=== PATIENT | male | born 1950 | race Hispanic/Latino ===

== ENCOUNTER 2018-08-01 08:42 | Inpatient (IN) | payer SELFPAY ==
[2018-08-01 14:03] LABS: #Basophils 0.1 thou/uL (0.0-0.2); #Eosinphils 0.3 thou/uL (0.0-0.7); #Lymphocytes 2.7 thou/uL (1.20-3.40); #Monocytes 0.7 thou/uL (0.11-0.59); %Basophils 1.2 % (0.0-1.0); %Eosinophils 2.9 % (0.0-10.0); %Lymphocytes 27.3 % (21.0-51.0); %Monocytes 7.1 % (0.0-10.0); %Neutrophils 61.5 % (42.0-75.0); Hemoglobin 9.6 g/dL (14.0-18.0); Mean Corpuscular HGB CONC 32.7 g/dL (32.0-36.0); Mean Corpuscular Hemoglobin 29.5 pg (27.0-31.0); Mean Corpuscular Volume 90.2 fL (78.0-98.0); Mean Platelet Volume 7.9 fL (7.4-10.4); Platelet Count 255 thou/uL (130-400); RBC Distribution Width 13.2 % (11.5-14.5); Red Blood Cell (RBC) Count 3.26 mill/uL (4.70-6.10); White Blood Cell (WBC) Count 9.7 thou/uL (4.8-10.8)
[2018-08-01 14:10] LABS: Hemoglobin A1c 5.3 % (4.0-6.0)
[2018-08-01 14:28] LABS: Albumin 4.4 g/dL (3.4-4.8); Anion Gap 18 mmol/L (10-20); BUN (Urea Nitrogen) 99 mg/dL (8.4-25.7); BUN/Creatinine Ratio 10.08; Calc. Creatinine Clearance 0 mL/min (70-130); Calcium 8.3 mg/dL (7.8-10.44); Carbon Dioxide 20 mmol/L (23-31); Chloride 105 mmol/L (98-107); Estimated GFR-MDRD 5; Glucose 118 mg/dL (80-115); Phosphorus 5.8 mg/dL (2.3-4.7); Potassium 4.6 mmol/L (3.5-5.1); Sodium 138 mmol/L (136-145)
[2018-08-01 14:48] LABS: HBCM Index 0.07 S/CO (0-0.79); HBSAg Index 0.18 S/CO (0-0.99); Hep A IgM AB Non-Reactive (NonReactive); Hep A IgM S/CO 0.16 S/CO (0-0.79); Hep B Surf Ag Non-Reactive S/CO (NonReactive); Hep C IgG Ab Non-Reactive (NonReactive); Hep C Index 0.09 S/CO (0-0.79); Hepatitis B Core IGM Abs Non-Reactive (NonReactive)
--- NOTE | 2018-08-01 16:16 | ULT ---
VEIN MAPPING OF UPPER EXTREMITIES FOR DIALYSIS ACCESS: 08/01/18 INDICATION: Ultrasound and doppler studies performed on the cephalic and basilic veins of both upper extremities for mapping purposes to assess for dialysis graft access. RIGHT UPPER EXTREMITY BRACHIAL ARTERY: 5.7 mm RADIAL ARTERY: 1.0 mm ULNAR ARTERY: 3.1 mm CEPHALIC VEIN Axilla: 1.5 mm Proximal humerus: 1.1 mm Mid humerus: 1.7 mm Distal humerus: 2.2 mm Elbow: 1.1 mm Forearm: 1.1 mm BASILIC VEIN Axilla: 5.5 mm Proximal humerus: 2.0 mm Mid humerus: 2.0 mm Distal humerus: 1.3 mm Elbow: 0.8 mm Mid Forearm: 0.5 mm LEFT UPPER EXTREMITY BRACHIAL ARTERY: 4.8 mm RADIAL ARTERY: 1.4 mm ULNAR ARTERY: 3.3 mm CEPHALIC VEIN Axilla: 3.0 mm Proximal humerus: 2.8 mm Mid humerus: 2.5 mm Distal humerus: 4.3 mm Elbow: 2.5 mm Mid Forearm: 1.9 mm BASILIC VEIN Axilla: 3.7 mm Proximal humerus: 2.4 mm Mid humerus: 1.6 mm Distal humerus: 1.0 mm Elbow: 1.0 mm Mid Forearm: 0.7 mm POS: [facility]
[2018-08-01] MEDS ORDERED: Ondansetron ODT 4 MG TAB PO PRN (17:47)
[2018-08-01] MEDS ORDERED: HumaLOG 300 UNITS/3 ML VIAL SC PRN (17:47)
[2018-08-01] MEDS ORDERED: Dextrose 5% in Water 1,000 ML IV PRN (17:47)
[2018-08-01] MEDS ORDERED: Dextrose 50% Abboject 50 ML SYRINGE SLOW IVP PRN (17:47)
[2018-08-01] MEDS ORDERED: Ondansetron HCl/PF 4 MG/2 ML Vial IVP PRN (17:47)
[2018-08-01] MEDS ORDERED: Calcitriol 0.25 MCG CAP PO SCH (18:15)
[2018-08-01] MEDS ORDERED: NIFEdipine XL 30 MG TAB PO SCH (18:15)
[2018-08-01 18:28] LABS: Iron 72 ug/dL (65-175); Iron Binding Capacity, Total 305 mcg/dL (261-462)
[2018-08-01] MEDS ORDERED: Prevnar 13-Val Conj/PF 0.5 ML SYRINGE IM ONE (21:00)
[2018-08-01 21:37] LABS: Creatinine, Urine 51.21 mg/dL (63-166)
[2018-08-02] MEDS ORDERED: Tuberculin PPD 0.1 ML VIAL I-DERMAL SCH (05:45)
--- NOTE | 2018-08-02 07:43 | PDOC.GSCN ---
Surgery Consult: HPI - Consult details Date: 08/02/18 Time: 07:41 Reason for consult: other History of present illness: 08/02/18 07:55 Patient is a [place] national who was here visiting his grandchildren when he started feeling bad. He states that he felt weak and ill so he went to a clinic where lab work showed that he was in renal failure. He states that he has diabetes and hypertension but has never been told that his kidneys were bad. He denies any shortness of breath or swelling in his legs. He has been feeling weak and losing weight and has developed a tremor. He was sent to a insecticide supervisor who admitted him to the hospital for institution of dialysis since his GFR was 5. He is not significantly acidotic or hyperkalemic. 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 He is right-handed. 08/02/18 07:57 Surgery Consult: ROS - Review of Systems Constitutional: reports: fatigue, lethargy, malaise, weakness, weight loss. denies: as per HPI, anorexia, chills, daytime sleepiness, excessive sweating, fever(s), frequent falls, headache(s), increased appetite, night sweats, stops breathing during sleep, snoring, weight gain, other HEENT: denies: Head Aches, Visual Changes, Eye Pain, Ear Pain, Dysphasia, Sinus Congestion, Post Nasal Drip, Sore Throat, Other Breast: denies: as per HPI, change in shape, skin changes, swelling, mass, pain , nipple discharge, other Cardiovascular: reports: regular rate and rhythm. denies: irregular rate, no murmur, other Respiratory: denies: as per HPI, chest congestion, cough, dyspnea, hemoptysis, dyspnea on exertion, wheezing, snoring, stridor, pain on inspiration, excessive phlegm production, change in phlegm color, pain with cough, other Gastrointestinal: denies: as per HPI, abdominal pain, belching, bloating, change in bowel habits, coffee ground emesis, constipation, cramping, change in stool character, diarrhea, dyspepsia, dysphagia, excessive flatus, early satiety , fecal incontinence, heartburn, hematemesis, hematochezia, loose stool, melena , nausea, odynophagia, tenesmus, vomiting, other Musculoskeletal: reports: abnormal gait, muscle weakness. denies: as per HPI, arthralgias, atrophy, back pain, defomity, joint swelling, loss of height, limited range of motion, muscle cramps, myalgias, neck pain, numbness, radiating pain into limb, stiffness, tingling, other Integumentary: denies: as per HPI, acne, alopecia, bleeding lesions, change in hair, changing lesions, change in nails, change in pigmentation, dry skin, erythema, furuncle, lesions, non-healing lesions, new lesions, photosensitivity , pruritus, rash, sores, skin pain, striae, skin ulcer, swelling, unusual bruising, wounds, jaundice, other Neurologial: reports: abnormal gait, tremor(s), weakness. denies: as per HPI, abnormal hearing, abnormal movements, abnormal speech, behavioral changes, confusion, convulsions, dizziness, disequilibrium, frequent falls, focal weakness, headache(s), lack of coordination, loss of vision, memory loss, numbness, paresthesias, restless legs, radicular pain, sensory deficit, syncope , tingling, vertigo, other visual disturbances, other Psychiatric: denies: as per HPI, auditory halluncinations, anhedonia, anxiety, abnormal sleep pattern, behavioral changes, change in appetite, change in libido , confusion, difficulty concentrating, depression, hallucinations, homicidal ideation, hopelessness, irritability, mood swings, paranoia, panic attacks, suicidal ideation, visual hallucinations, tactile, other Surgery Consult: H Source: patient, family Past Medical History: Diabetes, hypertension, hyperlipidemia, history of stroke with residual right- sided weakness Past Surgical History: None; had stitches in hand after minor injury - Past Family History Pertinent family history: None - Past Social History Drug Use History: IV drugs, pt denies any use Living Situation: Surgery Consult: Exam - Vital signs Vital signs: Vital Signs - Most Recent Temp Pulse Resp BP Pulse Ox 98.3 F 105 H 20 144/90 H 93 L 08/02/18 04:00 08/02/18 04:00 08/02/18 04:00 08/02/18 04:00 08/02/18 04:00 - Physical Exam General: no distress Eye: normal ocular movement, PERRL ENT: no congestion Neck: no lymphadectomy, no masses, trachea midline Respiratory: clear to auscultation, normal expansion, normal respiratory effort Abdomen: non tender, soft, bowel sounds. negative: tender, organomegaly, surgical scars, wound, masses, guarding, rigid, rebound, distended, other Hernia: none Integumentary: no abnormal pigmentation, no growths, no rash Neurologic: normal coordination, normal sensation, other (Patient reports minor weakness in right leg greater than arm which was not evident on exam) Musculoskeletal: other (Slight limp) Psychiatric: memory intact, oriented to time, oriented to person, oriented to place, speech is normal, other Additional exam: Palpable cephalic and antecubital veins bilaterally. Ulnar dominant filling bilaterally on Chintan's testing. Peripheral IV and right hand dorsum. Patient is right-handed Surgery Consult: Meds - Medications MAR Reviewed: Yes Medications: Current Medications Acetaminophen (Tylenol) 650 mg PO Q4H PRN PRN Reason: Headache/Fever/Mild Pain (1-3) Aspirin (Ecotrin) 81 mg PO DAILY [facility] Calcitriol (Rocaltrol) 0.25 mcg PO DAILY [facility] Calcium Acetate (Phoslo) 1,334 mg PO TID-WM [facility] Dextrose/Water (Dextrose 50%) 25 gm SLOW IVP PRN PRN PRN Reason: Hypoglycemia Glucagon (Glucagon) 1 mg IM PRN PRN PRN Reason: Hypoglycemia Dextrose/Water (D5w) 1,000 mls @ 0 mls/hr IV .Q0M PRN PRN Reason: Hypoglycemia Insulin Human Lispro (Humalog) 0 units SC .MILD SLIDING SCALE PRN PRN Reason: Mild Correctional Scale Nifedipine (Procardia Xl) 30 mg PO DAILY [facility] Read Ppd Test Site 0 each PO ONE [facility] Stop: 08/04/18 09:01 Ondansetron HCl (Zofran Odt) 4 mg PO Q6H PRN PRN Reason: Nausea/Vomiting Ondansetron HCl (Zofran) 4 mg IVP Q6H PRN PRN Reason: Nausea/Vomiting - Allergies Allergies/Adverse Reactions: Allergies Allergy/AdvReac Type Severity Reaction Status Date / Time No Known Allergies Allergy Verified 08/01/18 13:10 Surgery Consult: Results - Labs Result Diagrams: 08/01/18 13:54 08/01/18 13:54 Lab results: Laboratory Results WBC 9.7 thou/uL (4.8-10.8) 08/01/18 13:54 RBC 3.26 mill/uL (4.70-6.10) L 08/01/18 13:54 Hgb 9.6 g/dL (14.0-18.0) L 08/01/18 13:54 Hct 29.4 % (42.0-52.0) L 08/01/18 13:54 MCV 90.2 fL (78.0-98.0) 08/01/18 13:54 MCH 29.5 pg (27.0-31.0) 08/01/18 13:54 MCHC 32.7 g/dL (32.0-36.0) 08/01/18 13:54 RDW 13.2 % (11.5-14.5) 08/01/18 13:54 Plt Count 255 thou/uL (130-400) 08/01/18 13:54 MPV 7.9 fL (7.4-10.4) 08/01/18 13:54 Neutrophils % 61.5 % (42.0-75.0) 08/01/18 13:54 Lymphocytes % 27.3 % (21.0-51.0) 08/01/18 13:54 Monocytes % 7.1 % (0.0-10.0) 08/01/18 13:54 Eosinophils % 2.9 % (0.0-10.0) 08/01/18 13:54 Basophils % 1.2 % (0.0-1.0) H 08/01/18 13:54 Neutrophils # 6.0 thou/uL (1.40-6.50) 08/01/18 13:54 Lymphocytes # 2.7 thou/uL (1.20-3.40) 08/01/18 13:54 Monocytes # 0.7 thou/uL (0.11-0.59) H 08/01/18 13:54 Eosinophils # 0.3 thou/uL (0.0-0.7) 08/01/18 13:54 Basophils # 0.1 thou/uL (0.0-0.2) 08/01/18 13:54 Sodium 138 mmol/L (136-145) 08/01/18 13:54 Potassium 4.6 mmol/L (3.5-5.1) 08/01/18 13:54 Chloride 105 mmol/L (98-107) 08/01/18 13:54 Carbon Dioxide 20 mmol/L (23-31) L 08/01/18 13:54 Anion Gap 18 mmol/L (10-20) 08/01/18 13:54 BUN 99 mg/dL (8.4-25.7) H 08/01/18 13:54 Creatinine 9.82 mg/dL (0.6-1.3) H 08/01/18 13:54 Estimated GFR (MDRD) 5 08/01/18 13:54 BUN/Creatinine Ratio 10.08 08/01/18 13:54 Glucose 118 mg/dL (80-115) H 08/01/18 13:54 POC Glucose 110 mg/dL (70-110) 08/02/18 04:14 Hemoglobin A1c 5.3 % (4.0-6.0) 08/01/18 13:54 Calcium 8.3 mg/dL (7.8-10.44) 08/01/18 13:54 Phosphorus 5.8 mg/dL (2.3-4.7) H 08/01/18 13:54 Iron 72 ug/dL (65-175) 08/01/18 13:54 TIBC 305 mcg/dL (261-462) 08/01/18 13:54 % Saturation 24 % (20-50) 08/01/18 13:54 Ferritin 277.44 ng/mL (22-322) 08/01/18 13:54 Albumin 4.4 g/dL (3.4-4.8) 08/01/18 13:54 PTH Intact 466.9 pg/mL (19.8-88.0) H 08/01/18 13:54 U Random Total Protein 228 mg/dL (1-14) H 08/01/18 21:10 Urine Creatinine 51.21 mg/dL (63-166) L 08/01/18 21:10 Hepatitis A IgM Ab Non-Reactive (NonReactive) 08/01/18 13:54 Hep Bs Antigen Non-Reactive S/CO (NonReactive) 08/01/18 13:54 Hep B Core IgM Ab Non-Reactive (NonReactive) 08/01/18 13:54 Hepatitis C Antibody Non-Reactive (NonReactive) 08/01/18 13:54 Surgery Consult: A/P - Problem (1) Renal failure Current Visit: Yes Status: Acute Qualifiers: Chronic kidney disease stage: stage 5, not on chronic dialysis - Plan Plan: Patient was admitted for institution of dialysis. A tunneled hemodialysis catheter will be placed today for immediate dialysis access. An AV fistula will be necessary ultimately. The patient is only visiting from [place] so this could be done in [place] if he prefers, or next week if he is still here. He does plan to return home to [place] ultimately, as he was just here for a visit. The procedure of tunneled hemodialysis catheter placement was discussed with the patient and his family using a food crops farm hand. Inherent risks of the procedure were discussed. These include but are not limited to bleeding, infection, risks of anesthesia, DVT, air embolism, and need further procedures. He understands and accepts these risks and wishes to proceed. He is on the schedule for this morning. Antibiotics will be ordered second language tutor to the OR.
[2018-08-02] MEDS: Calcitriol 0.25 MCG CAP PO SCH ×2 (07:55→11:30)
[2018-08-02] MEDS: Aspirin 81 mg Enteric Coated Tablet PO SCH (07:55)
[2018-08-02] MEDS: Calcium Acetate 667 MG CAP PO SCH ×3 (07:55→16:12)
[2018-08-02] MEDS ORDERED: Metoprolol Tartrate 100 MG TAB PO SCH (08:00)
[2018-08-02] MEDS ORDERED: Heparin 10,000 UNITS/ 10 ML VIAL ONE (08:21)
[2018-08-02] MEDS: NIFEdipine XL 30 MG TAB PO SCH ×2 (08:28→11:30)
[2018-08-02] MEDS ORDERED: Lidocaine 2% w/Epinephrine 1:200K 20 ML VIAL ONE (08:56)
[2018-08-02] MEDS ORDERED: Bupivacaine/Epinephrine 0.25% 30 ML VIAL ONE (08:56)
[2018-08-02] MEDS ORDERED: Heparin 5,000 UNITS/ML VIAL ONE (08:56)
[2018-08-02] MEDS ORDERED: Sodium Chloride 0.9% 30 ML ONE (08:56)
[2018-08-02] MEDS ORDERED: Fentanyl 100 MCG/2 ML VIAL ONE (08:58)
[2018-08-02] MEDS ORDERED: Midazolam HCl 2 mg/2 ml Vial ONE (08:58)
[2018-08-02] MEDS ORDERED: Heparin 10,000 UNITS/1 ML VIAL ONE (09:20)
[2018-08-02] MEDS ORDERED: Lidocaine 2% PF Inj 2 ML VIAL ONE (09:22)
--- NOTE | 2018-08-02 10:24 | HP ---
CHIEF COMPLAINT: Renal failure. HISTORY OF PRESENT ILLNESS: History is that of 68-year-old gentleman from [place] with family members here, who was referred to me with concern for renal failure. The patient presented to my office wit h a creatinine of above 9. As a result, decision was taken to admit this patient for further workup. The patient seems to be on some medications for diabetes including metformin, which was immediately discontinued having noticed this renal failure. The patient is now being admitted to be initiated o n hemodialysis, though unfortunately the access surgeons have now been noted not to be available for in the next 24 hours and the patient has eaten making it impossible for anything to be done today. PAST MEDICAL HISTORY: 1. Query diabetes. 2. Chronic kidney disease. 3. Hypertension. 4. Dyslipidemia. MEDICATIONS: Reviewed and as documented on nooked. ALLERGIES: No known drug allergy. FAMILY HISTORY: No family history of kidney disease. SOCIAL HISTORY: The patient . Denies alcohol, tobacco, or illicit drug use. REVIEW OF SYSTEMS: As documented in the body of the history. All the other systems were reviewed an d found not to be related to presenting illness. LABORATORY INVESTIGATION: Revealed a hemoglobin of 9.6. Chemistry showed PTH of 466, hemoglobin A1c of 5.3, INR of 7, ferritin 277, creatinine 9.82 with BUN of 99, phosphorus 5.8. IMPRESSION: 1. Chronic kidney disease, stage V/end-stage renal disease. 2. Hyperphosphatemia. 3. Secondary hyperparathyroidism. 4. Hypertension. 5. Questionable diabetes mellitus, most unlikely. PLAN: 1. The patient to get some vein mapping done in preparation for dialysis access. 2. The patient may benefit from erythropoiesis-stimulating agent due to anemia of chronic kidney dis ease. 3. Given the fact that the access surgeons are not available, the patient likely to be discharged wi thin the next 24 hours with a plan to come back when the access surgeons will be available to secure dialysis access. 4. Start this patient on nifedipine and monitor the hemodynamics. 5. Further management will be dependent on the clinical course. 6. Code status is FULL.
[2018-08-02] MEDS: Acetaminophen 325 MG TAB PO PRN (11:33)
--- NOTE | 2018-08-02 11:33 | RAD ---
PORTABLE CHEST: Date: 08/02/18 HISTORY: Catheter placement. FINDINGS: Heart size within normal limits. HemoSplit catheter has been placed, the catheter tip overlies the cortes perior vena cava. No signs of pneumothorax. Old right rib fractures seen. IMPRESSION: Placement of a HemoSplit catheter. No signs of pneumothorax. POS: [facility]
[2018-08-02 13:30] VITALS: BMI 26.4
--- NOTE | 2018-08-02 22:39 | PRG ---
DATE OF SERVICE: 08/02/2018 SUBJECTIVE: The patient is seen and examined today status post dialysis catheter placement, noted wi th the following vital signs. PHYSICAL EXAMINATION: VITAL SIGNS: Afebrile, temperature 97.5, pulse 93, respiratory rate 16, O2 sat 96%, blood pressure 1 37/84. GENERAL: Patient did very well today with the first session of dialysis, status post hemodialysis pl acement. HEENT: Unremarkable. CARDIOVASCULAR: First and heart sounds were heard. RESPIRATORY: Clear to auscultation. DIGESTIVE SYSTEM: Revealed a benign abdomen with positive bowel sounds. EXTREMITIES: No peripheral edema. SKIN: No new gross rash. LYMPHATICS: No peripheral lymphadenopathy. IMPRESSION: 1. End-stage renal disease, just initiated on dialysis today. 2. Secondary hyperparathyroidism. 3. Hyperphosphatemia. PLAN: 1. Patient to continue with hemodialysis. We will begin to coordinate with outpatient dialysis faci lity. In any case, the patient is therefore, we will have chronic kidney disease possibi lity of patient going for peritoneal dialysis as opposed to hemodialysis. 2. Further management to be dependent on the clinical course.
[2018-08-03] MEDS: Calcitriol 0.25 MCG CAP PO SCH (08:16)
[2018-08-03] MEDS: Aspirin 81 mg Enteric Coated Tablet PO SCH (08:16)
[2018-08-03] MEDS: NIFEdipine XL 30 MG TAB PO SCH (08:16)
[2018-08-03] MEDS: Calcium Acetate 667 MG CAP PO SCH ×3 (08:16→16:30)
--- NOTE | 2018-08-03 17:27 | PDOC.OP ---
Operative Note - Operative Note Operative Note: PROCEDURE: Placement of right internal jugular tunneled hemodialysis catheter with ultrasound and fluoroscopic guidance. SURGEON: Ricky Matthew M.D. DATE OF PROCEDURE: 08/02/2018 PREOPERATIVE DIAGNOSIS: Renal failure. POSTOPERATIVE DIAGNOSIS: Renal failure. HISTORY: Patient with newly diagnosed renal failure which is presumably chronic due to diabetes and hypertension. A tunneled hemodialysis catheter for ongoing dialysis has been requested by the patients health unit supervisor. PROCEDURE: After informed consent was obtained and appropriate preoperative antibiotics were administered, the patient was taken to the Operating Room, placed in the supine position and monitored anesthesia care was administered. The neck and chest were prepped and draped in a standard sterile fashion and the patient placed in Trendelenburg position. A sterile ultrasound probe was used to identify the patent compressible right IJ vein which was accessed under direct ultrasound guidance. A wire was threaded through the needle and confirmed by ultrasound to be within the patent compressible vessel with the tip in the vena cava by fluoroscopy. Local anesthesia was infused to the skin and subcutaneous tissues of the right neck and chest. An infraclavicular incision was made and a catheter tunneled from the infraclavicular to the right IJ access site. The right IJ was sequentially dilated over the wire following which a dilator and sheath were placed over the wire and the dilator and wire removed leaving the sheath in place. The catheter was tunneled through the sheath which was then split and removed leaving the catheter in place. This was confirmed by fluoroscopy to be in good position in the superior vena cava with no kinking of the course of the catheter. Both ports easily aspirated dark venous nonpulsatile blood and easily flushed without resistance. Heparin was instilled to the quantity specified on the hub, and the hub was secured to the skin with 3-0 nylon sutures. The skin incision at the neck was closed in two layers with 4-0 Monocryl suture and Dermabond dressings were placed. The skin at the exit site was snugged up around the catheter with 4-0 Monocryl suture and Dermabond was placed there as well. Once the Dermabond was dry, a Biopatch and Tegaderm dressing was placed at the exit site. The patient was taken to Recovery in good condition. Estimated blood loss was minimal. There were no complications. There were no specimens.
--- NOTE | 2018-08-03 21:54 | PRG ---
DATE OF SERVICE: 08/03/2018 SUBJECTIVE: The patient is seen and examined with no new complaint. PHYSICAL EXAMINATION: VITAL SIGNS: Noted with the following vital signs. Afebrile with temperature 98.2, pulse 88, respir atory rate of 18, O2 sat of 98%. HEENT: Unremarkable. CARDIOVASCULAR SYSTEM: First and heart sounds were heard. RESPIRATORY SYSTEM: Clear to auscultation. DIGESTIVE SYSTEM: Revealed a benign abdomen with positive bowel sounds. EXTREMITIES: No peripheral edema. SKIN: No new gross rash. LYMPHATICS: No peripheral lymphadenopathy. IMPRESSION: 1. End-stage renal disease, recently initiated on hemodialysis. 2. Anemia, likely anemia of chronic kidney disease. 3. Secondary hyperparathyroidism with hyperphosphatemia. 4. Hypertension. PLAN: 1. The patient already has a tunneled dialysis catheter. We will coordinate with the surgical team as he relates to a long-term dialysis access including but not limited to AV fistula and peritoneal d ialysis catheter. However, workup needs to be carried workup and evaluation need to be c arried out prior to arriving at his long-term access decision. Therefore, the patient likely to be d ischarged tomorrow after dialysis and to follow up with me as an outpatient. 2. Further management to be dependent on the clinical course.
[2018-08-04 05:15] LABS: #Basophils 0.1 thou/uL (0.0-0.2); #Eosinphils 0.3 thou/uL (0.0-0.7); #Lymphocytes 3.3 thou/uL (1.20-3.40); #Neutrophils 6.3 thou/uL (1.40-6.50); %Basophils 1.3 % (0.0-1.0); %Lymphocytes 29.8 % (21.0-51.0); %Neutrophils 56.9 % (42.0-75.0); Hemoglobin 9.8 g/dL (14.0-18.0); Mean Corpuscular HGB CONC 32.3 g/dL (32.0-36.0); Mean Corpuscular Hemoglobin 29.1 pg (27.0-31.0); Mean Platelet Volume 7.6 fL (7.4-10.4); Platelet Count 242 thou/uL (130-400); RBC Distribution Width 12.9 % (11.5-14.5); Red Blood Cell (RBC) Count 3.37 mill/uL (4.70-6.10); White Blood Cell (WBC) Count 11.1 thou/uL (4.8-10.8)
[2018-08-04 05:33] LABS: Anion Gap 18 mmol/L (10-20); BUN (Urea Nitrogen) 77 mg/dL (8.4-25.7); Calc. Creatinine Clearance 10 mL/min (70-130); Carbon Dioxide 23 mmol/L (23-31); Chloride 102 mmol/L (98-107); Estimated GFR-MDRD 6; Glucose 116 mg/dL (80-115); Potassium 4.5 mmol/L (3.5-5.1); Sodium 138 mmol/L (136-145)
[2018-08-04] MEDS: Calcium Acetate 667 MG CAP PO SCH ×3 (08:21→17:53)
[2018-08-04] MEDS: Aspirin 81 mg Enteric Coated Tablet PO SCH (08:22)
[2018-08-04] MEDS: Calcitriol 0.25 MCG CAP PO SCH (08:22)
[2018-08-04] MEDS: NIFEdipine XL 30 MG TAB PO SCH (08:22)
[2018-08-04] MEDS: Acetaminophen 325 MG TAB PO PRN (08:28)
[2018-08-04] MEDS ORDERED: READ PPD TEST SITE PO SCH (09:00)
[2018-08-04] MEDS ORDERED: Heparin 10,000 UNITS/ 10 ML VIAL ONE (11:00)
[2018-08-04 17:47] VITALS: BP 116/77; TEMP 98.1
== END 2018-08-04 18:11 | disposition home or self-care (01) | DRG 673 ==
LOC: T4-A 11:35
PROVIDERS: ADMIT Internal Medicine Nephrology; ATTEND Internal Medicine Nephrology
PROC: 5A1D70Z Performance of Urinary Filtration, Intermittent, Less than 6 Hours Per Day (ICD-10-PCS; 2018-08-02)
PROC: 0JH63XZ Insertion of Tunneled Vascular Access Device into Chest Subcutaneous Tissue and Fascia, Percutaneous Approach (ICD-10-PCS; principal; 2018-08-03)
PROC: 02HV33Z Insertion of Infusion Device into Superior Vena Cava, Percutaneous Approach (ICD-10-PCS; 2018-08-03)
PROC: B548ZZA Ultrasonography of Superior Vena Cava, Guidance (ICD-10-PCS; 2018-08-03)
PROC: B5181ZA Fluoroscopy of Superior Vena Cava using Low Osmolar Contrast, Guidance (ICD-10-PCS; 2018-08-03)
DX: I12.0 Hypertensive chronic kidney disease with stage 5 chronic kidney disease or end stage renal disease (principal); N18.6 End stage renal disease; N25.81 Secondary hyperparathyroidism of renal origin; I69.351 Hemiplegia and hemiparesis following cerebral infarction affecting right dominant side; E78.5 Hyperlipidemia, unspecified; E83.39 Other disorders of phosphorus metabolism; D63.1 Anemia in chronic kidney disease; R26.9 Unspecified abnormalities of gait and mobility; E11.22 Type 2 diabetes mellitus with diabetic chronic kidney disease; E66.9 Obesity, unspecified; Z68.26 Body mass index [BMI] 26.0-26.9, adult; F41.9 Anxiety disorder, unspecified
CPT/HCPCS: 36415; 36416; 71045; 80048; 80069; 80074; 82570; 82728; 83036; 83540; 83550; 83970; 84156; 85025; 86580; 90471; 90662; 90670; 90935; 93005; 93010; 93970; C1752; C1769; G0008; G0009; G0257; G0365; J1642; J1644; J2250; J3010

== ENCOUNTER 2018-08-16 08:02 | Observation (INO) | payer SELFPAY ==
[2018-08-16] MEDS ORDERED: Acetaminophen 325 MG TAB PO PRN (08:43)
[2018-08-16] MEDS ORDERED: Ondansetron ODT 4 MG TAB PO PRN (08:43)
[2018-08-16] MEDS ORDERED: Dextrose 5% in Water 1,000 ML IV PRN (08:43)
[2018-08-16] MEDS ORDERED: Dextrose 50% Abboject 50 ML SYRINGE SLOW IVP PRN (08:43)
[2018-08-16] MEDS ORDERED: Calcium Carbonate 500 MG ChewTAB PO PRN (08:43)
[2018-08-16] MEDS ORDERED: Insulin Regular 300 UNITS/3 ML VIAL SC PRN (08:43)
[2018-08-16 12:05] VITALS: BMI 37.5
[2018-08-16] MEDS ORDERED: Famotidine 20 MG TAB PO PRN (12:28)
[2018-08-16] MEDS ORDERED: Epoetin (ESRD) 20,000 UNITS/ML IVP SCH (12:30)
[2018-08-16 15:37] VITALS: BP 139/87; TEMP 97.8
[2018-08-16] MEDS ORDERED: Heparin 10,000 UNITS/ 10 ML VIAL ONE (15:59)
[2018-08-16] MEDS ORDERED: Calcium Acetate 667 MG CAP PO SCH (17:00)
[2018-08-16] MEDS ORDERED: Pravastatin Sodium 20 MG TAB PO SCH (21:00)
--- NOTE | 2018-08-17 06:43 | DIS ---
For the details of the history and physical, please refer to dictations on this patient. SUMMARY: This 68-year-old gentleman with end-stage renal disease, hemodialysis dependent who present ed here with his uremic symptoms and hyperkalemia, ____ dialysis and he is now being discharged to [facility] with medications.
[2018-08-17] MEDS ORDERED: Calcitriol 0.25 MCG CAP PO SCH (09:00)
[2018-08-17] MEDS ORDERED: NIFEdipine XL 30 MG TAB PO SCH (09:00)
[2018-08-17] MEDS ORDERED: Allopurinol 100 MG TAB PO SCH (09:00)
[2018-08-17] MEDS ORDERED: Aspirin 81 mg Enteric Coated Tablet PO SCH (09:00)
--- NOTE | 2018-08-17 10:18 | HP ---
CHIEF COMPLAINT: Weakness. HISTORY OF PRESENT ILLNESS: The patient is a 68-year-old end-stage renal disease . ___ __ presented to my office with weakness and poor appetite, raising the possibility of uremia. The annie salazar did undergo laboratory evaluation that showed elevated potassium and need for , for which the patient presented to the hospital to undergo hemodialysis. PAST MEDICAL HISTORY: 1. End-stage renal disease, hemodialysis dependent. 2. Type 2 diabetes mellitus. 3. Hypertension. 4. Anemia of chronic kidney disease. MEDICATIONS: Reviewed. ALLERTIES: No known drug allergies. FAMILY HISTORY: end-stage renal disease. SOCIAL HISTORY: No history of tobacco, alcohol or illicit drug abuse. From [place]. REVIEW OF SYSTEMS: As per the history of present illness. . LABORATORY INVESTIGATIONS: in the history of present illness. PHYSICAL EXAMINATION: GENERAL: The patient was found not to be in any obvious distress. VITAL SIGNS: Temperature 97.1, pulse 101, respiratory rate , blood pressure . RESPIRATORY SYSTEM: Clear to auscultation. DIGESTIVE SYSTEM: Positive bowel sounds. EXTREMITIES: No peripheral edema. SKIN: No new gross rash. IMPRESSION: 1. End-stage renal disease, on hemodialysis. 2. . 3. Hyperkalemia. 4. Type 2 diabetes mellitus. 5. Hypertension. PLAN: 1. The patient to undergo hemodialysis with ultrafiltration as tolerated by hemodynamics. 2. Resume all home medications. 3. Renally dose all medications. The patient does well with dialysis will likely be discharged stat us post dialysis.
== END 2018-08-16 15:36 | disposition home or self-care (01) ==
LOC: 2SW 10:36
PROVIDERS: ADMIT Internal Medicine Nephrology; ATTEND Internal Medicine Nephrology
DX: I12.0 Hypertensive chronic kidney disease with stage 5 chronic kidney disease or end stage renal disease (principal); E11.22 Type 2 diabetes mellitus with diabetic chronic kidney disease; N18.6 End stage renal disease; D63.1 Anemia in chronic kidney disease; Z99.2 Dependence on renal dialysis; Z79.82 Long term (current) use of aspirin; Z79.899 Other long term (current) drug therapy
CPT/HCPCS: 36416; 90935; G0257; J1644; Q4081

== ENCOUNTER 2018-09-11 08:14 | Observation (INO) | payer SELFPAY ==
[2018-09-11 10:29] VITALS: BMI 29.2
[2018-09-11 11:03] LABS: #Basophils 0.1 thou/uL (0.0-0.2); #Eosinphils 0.4 thou/uL (0.0-0.7); #Lymphocytes 1.9 thou/uL (1.20-3.40); #Monocytes 0.8 thou/uL (0.11-0.59); #Neutrophils 7.3 thou/uL (1.40-6.50); %Basophils 1.1 % (0.0-1.0); %Eosinophils 3.4 % (0.0-10.0); %Lymphocytes 18.4 % (21.0-51.0); %Monocytes 7.6 % (0.0-10.0); %Neutrophils 69.5 % (42.0-75.0); Hemoglobin 9.1 g/dL (14.0-18.0); Mean Corpuscular HGB CONC 33.2 g/dL (32.0-36.0); Mean Corpuscular Hemoglobin 29.5 pg (27.0-31.0); Mean Corpuscular Volume 88.8 fL (78.0-98.0); Mean Platelet Volume 6.7 fL (7.4-10.4); Platelet Count 254 thou/uL (130-400); RBC Distribution Width 12.5 % (11.5-14.5); Red Blood Cell (RBC) Count 3.09 mill/uL (4.70-6.10); White Blood Cell (WBC) Count 10.4 thou/uL (4.8-10.8)
[2018-09-11 11:21] LABS: ALT (SGPT) Less than 7 U/L (8-55); AST (SGOT) 6 U/L (5-34); Albumin 3.8 g/dL (3.4-4.8); Alkaline Phosphatase 79 U/L (40-150); Bilirubin, Direct 0.2 mg/dL (0.1-0.3); Bilirubin, Total 0.3 mg/dL (0.2-1.2); Protein, Total 7.2 g/dL (5.8-8.1)
[2018-09-11 11:44] LABS: HBSAB Concentration 0.85 mIU/mL; HBSAg Index 0.35 S/CO (0-0.99); Hep B Surf AB Non-Reactive (NonReactive); Hep B Surf Ag Non-Reactive S/CO (NonReactive)
[2018-09-11] MEDS ORDERED: Famotidine 20 MG TAB PO PRN (11:44)
[2018-09-11] MEDS: Calcium Acetate 667 MG CAP PO SCH ×2 (12:09→17:38)
[2018-09-11] MEDS ORDERED: NIFEdipine XL 30 MG TAB PO SCH (17:15)
[2018-09-11 17:27] VITALS: BP 199/113; TEMP 98.8
[2018-09-11] MEDS ORDERED: Atorvastatin Calcium 10 MG TAB PO SCH (21:00)
--- NOTE | 2018-09-11 23:17 | HP ---
CHIEF COMPLAINT: Shortness of breath and renal failure. HISTORY OF PRESENT ILLNESS: He is a 68-year-old gentleman with end-stage renal disease who unfortuna toy cannot get dialysis in any outpatient dialysis facility, presented to the office complaining of not feeling well, short of breath and clinical evaluation with laboratory investigation showed eviden ce of advanced renal failure. Decision was taken to admit this patient for renal replacement therapy . PAST MEDICAL HISTORY: Significant for end-stage renal disease, hypertension, diabetes mellitus. MEDICATIONS: Reviewed and as documented on [facility]. ALLERGIES: No known drug allergy. FAMILY HISTORY: Not significantly related to presenting illness. SOCIAL HISTORY: No alcohol, no tobacco, no illicit drug use. REVIEW OF SYSTEMS: As documented in the body of history. All the other systems were reviewed and fo und not to be significantly related to presenting illness. PHYSICAL EXAMINATION: GENERAL: The patient was found not to be in any physical distress. VITAL SIGNS: Blood pressure 182/88, afebrile, temperature 97.6, pulse 94, respiratory rate of 18, O2 saturation 98%. HEENT: Unremarkable. Moist oral mucosa. No conjunctival injection or icterus. NECK: Supple. CARDIOVASCULAR SYSTEM: First and second heart sounds were heard. RESPIRATORY SYSTEM: Clear to auscultation. DIGESTIVE SYSTEM: Revealed a benign abdomen with positive bowel sounds. EXTREMITIES: No peripheral edema. SKIN: No new gross rash. LYMPHATICS: No peripheral lymphadenopathy. IMPRESSION: 1. End-stage renal disease, on hemodialysis. 2. Hypertension, suboptimally controlled. 3. Diabetes mellitus. PLAN: 1. The patient to be dialyzed today with ultrafiltration as tolerated by hemodynamics. 2. Resume antihypertensive medications and make adjustments accordingly. 3. If the patient does well status post hemodialysis, he will be discharged today to continue with o utpatient treatment. 4. Further management to be dependent on the clinical course. CODE STATUS: FULL.
[2018-09-12] MEDS ORDERED: Allopurinol 100 MG TAB PO SCH (09:00)
[2018-09-12] MEDS ORDERED: Aspirin 81 mg Enteric Coated Tablet PO SCH (09:00)
[2018-09-12] MEDS ORDERED: NIFEdipine XL 30 MG TAB PO SCH (09:00)
[2018-09-12] MEDS ORDERED: Calcitriol 0.25 MCG CAP PO SCH (09:00)
== END 2018-09-11 18:20 | disposition home or self-care (01) ==
LOC: 2SW 10:14
PROVIDERS: ADMIT Internal Medicine Nephrology; ATTEND Internal Medicine Nephrology
DX: I12.0 Hypertensive chronic kidney disease with stage 5 chronic kidney disease or end stage renal disease (principal); E11.22 Type 2 diabetes mellitus with diabetic chronic kidney disease; N18.6 End stage renal disease; Z99.2 Dependence on renal dialysis; Z79.899 Other long term (current) drug therapy
CPT/HCPCS: 36415; 80076; 83970; 85025; 86706; 87340; G0378